=== PATIENT | female | born 1960 | race Caucasian/White ===

== ENCOUNTER 2022-06-02 14:04 | Inpatient (IN) | payer OTHER ==
[2022-06-02] MEDS ORDERED: Ondansetron PF 4 MG/2 ML Vial IVP PRN (20:53)
[2022-06-02] MEDS ORDERED: Ondansetron ODT 4 MG TAB PO PRN (20:53)
[2022-06-02] MEDS ORDERED: Acetaminophen 325 MG TAB PO PRN (20:53)
[2022-06-02] MEDS ORDERED: Heparin 10,000 UNITS/ 10 ML VIAL SLOW IVP SCH (21:15)
[2022-06-02] MEDS ORDERED: Phenazopyridine HCl 100 MG TAB PO SCH (22:00)
[2022-06-02 22:03] LABS: Hemoglobin 15.3 g/dL (12.0-16.0); Platelet Count 193 10x3/uL (130-400)
[2022-06-02] MEDS: Heparin 25,000 units/D5W 500 ML IVPB SCH (22:26)
[2022-06-02 22:34] VITALS: BMI 59.8
[2022-06-02] MEDS ORDERED: Sodium Chloride 0.9% 1,000 ML IV SCH (23:15)
[2022-06-03] MEDS ORDERED: Polyethylene Glycol 3350 17 GM Packet PO PRN (01:50)
[2022-06-03] MEDS ORDERED: Milk Of Magnesia 30 ML UDCUP PO PRN (01:50)
[2022-06-03] MEDS ORDERED: clonazePAM 1 MG TAB PO SCH (02:00)
[2022-06-03] MEDS ORDERED: Phenazopyridine HCl 100 MG TAB PO PRN (02:01)
[2022-06-03] MEDS ORDERED: SECUKINUMAB 150 MG/ML SC SCH (02:15)
[2022-06-03 05:12] LABS: #Eosinphils 0.1 thou/uL (0.0-0.7); #Lymphocytes 3.2 thou/uL (1.20-3.40); #Monocytes 0.7 thou/uL (0.11-0.59); #Neutrophils 5.5 thou/uL (1.40-6.50); %Basophils 0.2 % (0.0-1.0); %Eosinophils 0.7 % (0.0-10.0); %Lymphocytes 33.8 % (21.0-51.0); %Monocytes 7.8 % (0.0-10.0); %Neutrophils 57.5 % (42.0-75.0); Hemoglobin 13.1 g/dL (12.0-16.0); Mean Corpuscular HGB CONC 33.1 g/dL (32.0-36.0); Mean Corpuscular Hemoglobin 31.8 pg (27.0-31.0); Mean Corpuscular Volume 95.9 fl (78.0-98.0); Platelet Count 143 10x3/uL (130-400); RBC Distribution Width 12.9 % (11.5-14.5); Red Blood Cell (RBC) Count 4.13 mill/uL (4.20-5.40); White Blood Cell (WBC) Count 9.5 10x3/uL (4.8-10.8)
[2022-06-03 05:23] LABS: PTT 134.8 sec (22.9-36.1)
[2022-06-03 05:31] LABS: ALT (SGPT) 22 U/L (8-55); AST (SGOT) 26 U/L (5-34); Albumin 3.7 g/dL (3.5-5.0); Alkaline Phosphatase 54 U/L (40-110); Anion Gap 14 mmol/L (10-20); BUN (Urea Nitrogen) 22 mg/dL (9.8-20.1); Bilirubin, Total 0.2 mg/dL (0.2-1.2); Calc. Creatinine Clearance 120 mL/min (70-130); Calcium 9.5 mg/dL (7.8-10.44); Carbon Dioxide 24 mmol/L (22-29); Chloride 104 mmol/L (98-107); Estimated GFR 48; Globulin 3.3 g/dL (2.4-3.5); Glucose 114 mg/dL (70-105); Potassium 4.7 mmol/L (3.5-5.1); Sodium 137 mmol/L (136-145)
[2022-06-03] MEDS: Phenazopyridine HCl 100 MG TAB PO SCH ×3 (09:24→17:38)
[2022-06-03] MEDS ORDERED: Lorazepam 0.5 MG TAB PO PRN (12:31)
[2022-06-03] MEDS ORDERED: hydrOXYzine 25 MG TAB PO PRN (12:31)
[2022-06-03] MEDS: Heparin 25,000 units/D5W 500 ML IVPB SCH ×2 (15:44→23:08)
[2022-06-03] MEDS: Magnesium Oxide 250 MG TAB PO SCH (21:36)
[2022-06-03] MEDS: Thyroid 60 MG TAB PO SCH (21:36)
[2022-06-03] MEDS: clonazePAM 1 MG TAB PO SCH (21:37)
[2022-06-03] MEDS ORDERED: Cholecalciferol 1,000 UNITS (25 MCG) TAB PO SCH (22:15)
[2022-06-04 00:47] LABS: PTT 143.1 sec (22.9-36.1)
[2022-06-04 05:18] LABS: Anion Gap 10 mmol/L (10-20); BUN (Urea Nitrogen) 21 mg/dL (9.8-20.1); Calc. Creatinine Clearance 138 mL/min (70-130); Calcium 9.4 mg/dL (7.8-10.44); Carbon Dioxide 29 mmol/L (22-29); Chloride 103 mmol/L (98-107); Estimated GFR 56; Glucose 99 mg/dL (70-105); Potassium 3.9 mmol/L (3.5-5.1); Sodium 138 mmol/L (136-145)
[2022-06-04] MEDS: Phenazopyridine HCl 100 MG TAB PO SCH ×3 (09:25→19:07)
[2022-06-04] MEDS: Furosemide 20 MG/2 ML VIAL SLOW IVP SCH (09:25)
[2022-06-04] MEDS: Heparin 25,000 units/D5W 500 ML IVPB SCH (13:45)
[2022-06-04] MEDS: Cholecalciferol 1,000 UNITS (25 MCG) TAB PO SCH (20:57)
[2022-06-04] MEDS: Magnesium Oxide 250 MG TAB PO SCH (20:57)
[2022-06-04] MEDS: Senokot S 8.6-50 MG TAB PO SCH (20:57)
[2022-06-04] MEDS: Thyroid 60 MG TAB PO SCH (20:58)
[2022-06-04] MEDS: clonazePAM 1 MG TAB PO SCH (20:58)
[2022-06-04 21:39] LABS: Hemoglobin 13.4 g/dL (12.0-16.0); Platelet Count 152 10x3/uL (130-400)
[2022-06-05] MEDS: Heparin 25,000 units/D5W 500 ML IVPB SCH (04:23)
[2022-06-05] MEDS: Apixaban 5 MG TAB PO SCH ×2 (08:54→20:25)
[2022-06-05] MEDS: Furosemide 20 MG/2 ML VIAL SLOW IVP SCH (08:54)
[2022-06-05] MEDS: Phenazopyridine HCl 100 MG TAB PO SCH ×3 (08:55→18:31)
[2022-06-05] MEDS: Senokot S 8.6-50 MG TAB PO SCH ×2 (08:55→20:26)
[2022-06-05] MEDS ORDERED: FLU VACC QS2022-23(6MOS UP)/PF 60 MCG/0.5 ML SYRINGE IM ONE (09:00)
[2022-06-05] MEDS: Ipratropium Bromide 0.06% Nasal Inhaler 15ml EA NARE SCH ×2 (13:39→20:27)
[2022-06-05] MEDS ORDERED: Furosemide 20 MG/2 ML VIAL SLOW IVP SCH (19:00)
[2022-06-05] MEDS: Thyroid 60 MG TAB PO SCH (20:24)
[2022-06-05] MEDS: Magnesium Oxide 250 MG TAB PO SCH (20:25)
[2022-06-05] MEDS: clonazePAM 1 MG TAB PO SCH (20:26)
[2022-06-05] MEDS: Cholecalciferol 1,000 UNITS (25 MCG) TAB PO SCH (20:26)
[2022-06-06 05:26] LABS: Anion Gap 19 mmol/L (10-20); BUN (Urea Nitrogen) 21 mg/dL (9.8-20.1); Calc. Creatinine Clearance 131 mL/min (70-130); Calcium 9.6 mg/dL (7.8-10.44); Carbon Dioxide 19 mmol/L (22-29); Chloride 100 mmol/L (98-107); Estimated GFR 53; Glucose 95 mg/dL (70-105); Potassium 4.5 mmol/L (3.5-5.1); Sodium 133 mmol/L (136-145)
[2022-06-06] MEDS: Ipratropium Bromide 0.06% Nasal Inhaler 15ml EA NARE SCH ×2 (09:00→21:00)
[2022-06-06] MEDS: Apixaban 5 MG TAB PO SCH ×2 (09:28→21:32)
[2022-06-06] MEDS: Furosemide 20 MG/2 ML VIAL SLOW IVP SCH (09:28)
[2022-06-06] MEDS: Phenazopyridine HCl 100 MG TAB PO SCH ×3 (09:29→19:27)
[2022-06-06] MEDS: Senokot S 8.6-50 MG TAB PO SCH ×2 (09:29→21:32)
[2022-06-06] MEDS: Thyroid 60 MG TAB PO SCH (21:30)
[2022-06-06] MEDS: Cholecalciferol 1,000 UNITS (25 MCG) TAB PO SCH (21:31)
[2022-06-06] MEDS: clonazePAM 1 MG TAB PO SCH (21:32)
[2022-06-06] MEDS: Magnesium Oxide 250 MG TAB PO SCH (21:32)
[2022-06-06 22:05] LABS: Hemoglobin 13.6 g/dL (12.0-16.0); Platelet Count 182 10x3/uL (130-400)
[2022-06-07] MEDS: Ipratropium Bromide 0.06% Nasal Inhaler 15ml EA NARE SCH ×2 (01:19→08:55)
[2022-06-07] MEDS: Apixaban 5 MG TAB PO SCH (08:54)
[2022-06-07] MEDS: Phenazopyridine HCl 100 MG TAB PO SCH ×2 (08:54→12:20)
[2022-06-07] MEDS: Senokot S 8.6-50 MG TAB PO SCH (08:54)
[2022-06-07 12:22] VITALS: BP 121/80; TEMP 97.9
[2022-06-07] MEDS ORDERED: Sodium Chloride 0.65% Nasal 44 ML BOT EA NARE PRN ×2 (12:23→12:30)
== END 2022-06-07 16:40 | disposition home or self-care (01) | DRG 175 ==
LOC: 2NO 20:24 → OBSVTOIN 20:53
PROVIDERS: ADMIT Internal Medicine; ATTEND Family Medicine
DX: I26.99 Other pulmonary embolism without acute cor pulmonale (principal); J96.01 Acute respiratory failure with hypoxia; Z68.43 Body mass index [BMI] 50.0-59.9, adult; N17.9 Acute kidney failure, unspecified; K58.1 Irritable bowel syndrome with constipation; E78.5 Hyperlipidemia, unspecified; Z20.822 Contact with and (suspected) exposure to COVID-19; E06.3 Autoimmune thyroiditis; I12.9 Hypertensive chronic kidney disease with stage 1 through stage 4 chronic kidney disease, or unspecified chronic kidney disease; N18.9 Chronic kidney disease, unspecified; E66.01 Morbid (severe) obesity due to excess calories; Z86.16 Personal history of COVID-19; Z79.899 Other long term (current) drug therapy; Z90.710 Acquired absence of both cervix and uterus
CPT/HCPCS: 36415; 80048; 80053; 82274; 85014; 85018; 85025; 85049; 85730; 87798; 89220; 93306; 93970; 94640; J1644; J1940; J1956; J7050

== ENCOUNTER 2022-08-16 15:15 | Outpatient (CLI) | payer OTHER | END 2022-08-16 15:16 | disposition home or self-care (01) | LOC: RAD 15:15 | PROVIDERS: ATTEND Internal Medicine Critical Care Medicine | DX: R06.00 Dyspnea, unspecified (principal) | CPT/HCPCS: 71046 ==